=== PATIENT | female | born 1985 | race American Indian/Alaskan Native ===

== ENCOUNTER 2021-02-26 20:18 | Emergency (ER) | payer OTHER ==
[2021-02-26 23:30] LABS: Basophils % (Auto) 0.4 % (0.0-1.8); Eosinophils # (Auto) 0.2 K/mm3 (0.0-0.4); Eosinophils % (Auto) 3.2 % (0.0-4.3); Hemoglobin 14.6 gm/dl (10.1-14.3); Lymphocytes # (Auto) 2.4 K/mm3 (1.2-5.4); Lymphocytes % (Auto) 35.8 % (13.4-35.0); Mean Corpuscular HGB Conc 34 % (30-34); Mean Corpuscular Volume 92 fl (79-97); Monocytes # (Auto) 0.5 K/mm3 (0.0-0.8); Monocytes % (Auto) 7.7 % (0.0-7.3); Platelet Count 245 K/mm3 (140-440); Red Blood Count 4.66 M/mm3 (3.65-5.03); Red Cell Distribution Width 13.8 % (13.2-15.2)
[2021-02-27] LABS: Blood Urea Nitrogen 9 mg/dL (7-17); Calcium 9.4 mg/dL (8.4-10.2); Hemolysis Index 34
[2021-02-27 00:07] LABS: BUN/Creatinine Ratio 13
--- NOTE | 2021-02-27 00:35 | Emergency Department Report ---
ED General Adult HPI - General Chief complaint: Neuro Symptoms/Deficit Stated complaint: BURNING/TINGLING HANDS/LEGS/FEET Time Seen by Provider: 02/27/21 00:17 Source: patient Mode of arrival: Ambulatory Limitations: No Limitations - History of Present Illness Initial comments: Patient is a 35-year-old female presents emergency room with complaints of a burning and tingling sensation in her feet and toes and her fingers bilaterally that began 4 days ago. She denies any numbness and still has sensation just feels a tingling sensation. She denies any fall or injury. She denies any fever, nausea, vomiting, diarrhea, leg swelling, weakness, gait disturbance, speech disturbance, headache, vision changes. Past medical history of asthma. Allergy to Cipro, doxy, penicillin, sulfa. She has an IUD as control. She denies any history of diabetes. - Related Data Previous Rx's Medication Instructions Recorded Last Taken Type Gabapentin 300 mg PO Q8HR #90 capsule 02/27/21 Unknown Rx Allergies Allergy/AdvReac Type Severity Reaction Status Date / Time ciprofloxacin [From Cipro] Allergy Itching Verified 02/26/21 22:33 doxycycline Allergy Hives Verified 02/26/21 22:33 Penicillins Allergy Hives Verified 02/26/21 22:32 Sulfa (Sulfonamide Allergy Hives Verified 02/26/21 22:32 Antibiotics) ED Review of Systems ROS: Stated complaint: BURNING/TINGLING HANDS/LEGS/FEET Other details as noted in HPI Comment: All other systems reviewed and negative ED Past Medical Hx - Past Medical History Previous Medical History?: Yes Hx Asthma: Yes - Surgical History Past Surgical History?: No - Social History Smoking Status: Never Smoker Substance Use Type: None - Medications Home Medications: Home Medications Medication Instructions Recorded Confirmed Last Taken Type Gabapentin 300 mg PO Q8HR #90 capsule 02/27/21 Unknown Rx ED Physical Exam - General Limitations: No Limitations General appearance: alert, in no apparent distress - Head Head exam: Present: atraumatic, normocephalic - Eye Eye exam: Present: normal appearance - ENT ENT exam: Present: mucous membranes moist - Respiratory Respiratory exam: Present: normal lung sounds bilaterally. Absent: respiratory distress, wheezes, rales, rhonchi, stridor, chest wall tenderness, accessory muscle use, decreased breath sounds, prolonged expiratory - Cardiovascular Cardiovascular Exam: Present: regular rate, normal rhythm, normal heart sounds. Absent: systolic murmur, diastolic murmur, rubs, gallop - Extremities Exam Extremities exam: Present: normal inspection, full ROM, normal capillary refill. Absent: tenderness, pedal edema, joint swelling, calf tenderness - Neurological Exam Neurological exam: Present: alert, oriented X3, CN II-XII intact, normal gait. Absent: motor sensory deficit - Psychiatric Psychiatric exam: Present: normal affect, normal mood - Skin Skin exam: Present: warm, dry, intact ED Course Vital Signs 02/26/21 02/27/21 22:17 00:47 Temperature 98.7 F 98.2 F Pulse Rate 75 76 Respiratory 18 16 Rate Blood Pressure 137/88 Blood Pressure 115/85 [Left] O2 Sat by Pulse 99 100 Oximetry ED Medical Decision Making - Lab Data Result diagrams: 02/26/21 22:51 02/26/21 22:51 Lab Results 02/26/21 02/26/21 02/26/21 Range/Units 22:51 22:51 22:51 WBC 6.7 (4.5-11.0) K/mm3 RBC 4.66 (3.65-5.03) M/mm3 Hgb 14.6 H (10.1-14.3) gm/dl Hct 43.0 H (30.3-42.9) % MCV 92 (79-97) fl MCH 31 (28-32) pg MCHC 34 (30-34) % RDW 13.8 (13.2-15.2) % Plt Count 245 (140-440) K/mm3 Lymph % (Auto) 35.8 H (13.4-35.0) % Bee % (Auto) 7.7 H (0.0-7.3) % Eos % (Auto) 3.2 (0.0-4.3) % Baso % (Auto) 0.4 (0.0-1.8) % Lymph # (Auto) 2.4 (1.2-5.4) K/mm3 Bee # (Auto) 0.5 (0.0-0.8) K/mm3 Eos # (Auto) 0.2 (0.0-0.4) K/mm3 Baso # (Auto) 0.0 (0.0-0.1) K/mm3 Seg Neutrophils % 52.9 (40.0-70.0) % Seg Neutrophils # 3.5 (1.8-7.7) K/mm3 Sodium 139 (137-145) mmol/L Potassium 4.0 (3.6-5.0) mmol/L Chloride 101.0 (98-107) mmol/L Carbon Dioxide 28 (22-30) mmol/L Anion Gap 14 mmol/L BUN 9 (7-17) mg/dL Creatinine 0.7 (0.6-1.2) mg/dL Estimated GFR > 60 ml/min BUN/Creatinine Ratio 13 % Glucose 82 (65-100) mg/dL Calcium 9.4 (8.4-10.2) mg/dL HCG, Qual Negative (Negative) - Medical Decision Making Patient is a 35-year-old female presents emergency room with complaints of a burning and tingling sensation in her feet and toes and her fingers bilaterally that began 4 days ago. She denies any numbness and still has sensation just feels a tingling sensation. She denies any fall or injury. She denies any fever, nausea, vomiting, diarrhea, leg swelling, weakness, gait disturbance, speech disturbance, headache, vision changes. Past medical history of asthma. Allergy to Cipro, doxy, penicillin, sulfa. She has an IUD as control. She denies any history of diabetes. Vitals are normal. No abnormality on physical examination as documented in chart. Labs are normal. Symptoms appear most consistent with peripheral neuropathy. Patient has no clinical signs of septic joint, gout, ulcerations, neurovascular compromise, she has had no trauma, no clinical signs of DVT. Patient given prescription for gabapentin. Advised patient Please take medication as prescribed. Follow-up with your primary care doctor. Follow-up with a neurologist. Return to emergency room for new or worsening symptoms. Critical care attestation.: If time is entered above; I have spent that time in minutes in the direct care of this critically ill patient, excluding procedure time. ED Disposition Clinical Impression: Intermittent paresthesia of hand and foot Disposition: DC- TO HOME OR SELFCARE Is pt being admited?: No Does the pt Need Aspirin: No Condition: Stable Instructions: Peripheral Neuropathy Additional Instructions: Please take medication as prescribed. Follow-up with your primary care doctor. Follow-up with a neurologist. Return to emergency room for new or worsening symptoms. Prescriptions: Gabapentin 300 mg PO Q8HR #90 capsule Referrals: PRIMARY CAREMD [Primary Care Provider] - 3-5 Days YAMILETH GAVIRIA MD [Staff Physician] - 3-5 Days [facility] [Provider Group] - 3-5 Days ANNE-MARIE PALOMARES MD [Referring] - 3-5 Days [facility] [Provider Group] - 3-5 Days Time of Disposition: 00:33 Print Language: MALTESE
[2021-02-27 00:48] VITALS: BP 115/85
== END 2021-02-27 00:49 | disposition home or self-care (01) ==
LOC: ED 20:18
DX: R20.2 Paresthesia of skin (principal); J45.909 Unspecified asthma, uncomplicated; Z79.899 Other long term (current) drug therapy; Z88.0 Allergy status to penicillin; Z88.8 Allergy status to other drugs, medicaments and biological substances; Z88.2 Allergy status to sulfonamides
CPT/HCPCS: 36415; 80048; 84703; 85025